=== PATIENT | female | born 1940 | race Caucasian/White ===

== ENCOUNTER 2016-11-18 12:26 | Inpatient (IN) | payer OTHER ==
[~2016-11-18] VITALS: Ht 154.9 cm; Wt 58.4 kg
[2016-11-18 14:33] LABS: HEMATOCRIT 29.5 % (36.0-46.0); MCHC 31.2 G/DL (30.0-36.0); MCV 89.9 FL (83-99); MEAN PLAT.VOLUME 8.9 uM^3 (9.5-12.4); PLATELET COUNT 435 K/uL (156-360); RBC DIS.WIDTH-CV 18.4 % (11.8-14.6); RED BLOOD COUNT 3.28 M/uL (3.80-5.20)
[2016-11-18 14:40] LABS: INTER. NORMALIZED RATIO 1.5; PROTHROMBIN TIME 17.1 SEC (10.2-12.9)
[2016-11-18 14:43] LABS: CHLORIDE 100 mEq/L (99-109); SODIUM 137 mEq/L (136-147)
[2016-11-18 14:45] LABS: GLUCOSE 96 mg/dL (70-99)
[2016-11-18 14:46] LABS: ANION GAP 10 MEQ/L (2-14); POTASSIUM 4.2 mEq/L (3.7-5.4)
[2016-11-18 14:49] LABS: GFR ESTIMATE (CALCULATED) > 59 mL/min/
[2016-11-18 14:50] LABS: UREA NITROGEN (BUN) 6 mg/dL (9-23)
[2016-11-18 14:55] LABS: TROP-I INTERPRETATION NEGATIVE; TROPONIN-I 0.01 ng/mL (0.0-0.30)
[2016-11-18] MEDS ORDERED: MILK OF MAGN PO (15:43)
[2016-11-18] MEDS ORDERED: BISAC-EVAC10 MG PR (15:44)
[2016-11-18] MEDS ORDERED: FLEET ENEMA-AD118 ML PR (15:45)
[2016-11-18] MEDS ORDERED: DIGOX250 MCG PO (15:46)
[2016-11-18] MEDS ORDERED: LEVOTHYROXINE75 MCG PO (15:47)
[2016-11-18] MEDS ORDERED: ROXICODONE5 MG PO (15:48)
[2016-11-18] MEDS ORDERED: PREDNISONE5 MG PO (15:49)
[2016-11-18] MEDS ORDERED: LAX STOOL SOFT1 EACH PO (15:50)
[2016-11-18] MEDS ORDERED: ACETAMINOPHEN325 M1 PO (15:51)
[2016-11-18] MEDS ORDERED: CARDIZEM CD240 MG PO ×2 (15:52)
[2016-11-18] MEDS ORDERED: SODIUM CHLORIDE1 G1 PO (15:53)
[2016-11-18] MEDS ORDERED: ELIQUIS5 MG PO (15:53)
[2016-11-18] MEDS ORDERED: ACETAMINOPHEN650 M4 PR (15:54)
[2016-11-18] MEDS ORDERED: REMERON15 M2 PO (15:54)
[2016-11-18] MEDS ORDERED: PHENERGAN25 MG PR (15:55)
[2016-11-18] MEDS ORDERED: AUGMENTIN875 MG PO (15:55)
[2016-11-18] MEDS ORDERED: DUONEB 2.5-0.5 M3 ML AEROSOL (15:56)
[2016-11-18] MEDS ORDERED: ACIDOPHILUS1 EAC3 PO (15:57)
[2016-11-18] MEDS ORDERED: COUGH SYRU100 MG/5 M PO (15:58)
[2016-11-18] MEDS ORDERED: FLUOXETINE HCL10 MG PO (15:59)
[2016-11-18] MEDS ORDERED: MACROBID100 MG PO (16:00)
[2016-11-18 23:26] VITALS: BP 119/67
[2016-11-19 07:04] LABS: ANION GAP 11 MEQ/L (2-14); CHLORIDE 102 MEQ/L (99-109); GFR ESTIMATE (CALCULATED) > 59 mL/min/; GLUCOSE 73 mg/dL (70-99); POTASSIUM 3.4 MEQ/L (3.7-5.4); SAMPLE HEMOLYSIS CHECK 0; SAMPLE ICTERIC CHECK 0; SAMPLE LIPEMIA CHECK 0; SODIUM 136 MEQ/L (136-147); UREA NITROGEN (BUN) 5 mg/dL (9-23)
[2016-11-19 07:10] LABS: TROP-I INTERPRETATION NEGATIVE; TROPONIN-I 0.02 ng/mL (0.0-0.30)
[2016-11-19 08:23] VITALS: BP 128/71
[2016-11-19 11:00] VITALS: BP 124/63
[2016-11-19 15:10] VITALS: BP 126/67
[2016-11-19 20:27] VITALS: BP 123/72
[2016-11-19 23:53] VITALS: BP 121/66
[2016-11-20 06:40] VITALS: BP 118/66
[2016-11-20 16:10] VITALS: BP 121/72
[2016-11-20 19:49] VITALS: BP 132/75
[2016-11-20 23:49] VITALS: BP 131/66
[2016-11-21 04:26] VITALS: BP 125/73
[2016-11-21 07:48] VITALS: BP 114/60
[2016-11-21 07:56] LABS: ANION GAP 9 MEQ/L (2-14); CHLORIDE 99 MEQ/L (99-109); GFR ESTIMATE (CALCULATED) > 59 mL/min/; GLUCOSE 82 mg/dL (70-99); POTASSIUM 3.4 MEQ/L (3.7-5.4); SAMPLE HEMOLYSIS CHECK 0; SAMPLE ICTERIC CHECK 0; SAMPLE LIPEMIA CHECK 0; SODIUM 135 MEQ/L (136-147); UREA NITROGEN (BUN) 7 mg/dL (9-23)
[2016-11-21 08:28] LABS: C DIFF TOXIN POSITIVE (NEGATIVE); PROBE CHECK PASS
[2016-11-21 08:44] LABS: FERRITIN 125 NG/ML (10-291)
[2016-11-21 11:02] VITALS: BP 123/61
[2016-11-21 16:35] VITALS: BP 126/69
[2016-11-21 19:28] VITALS: BP 123/68
[2016-11-22 00:05] VITALS: BP 129/68
[2016-11-22 03:37] VITALS: BP 132/79
[2016-11-22 06:11] LABS: EOSINOPHIL (%) 1.1 % (0-5); EOSINOPHIL COUNT 0.1 K/uL (0-0.3); HEMATOCRIT 31.6 % (36.0-46.0); IMMATURE GRANULOCYTE (%) 1.3 % (0.0-0.7); IMMATURE GRANULOCYTE COUNT 0.1 K/uL; INSTRUMENT ABS NEUTROPHIL CT 3.7 K/uL; MCH 27.5 PG (29.0-34.0); MCHC 30.4 G/DL (30.0-36.0); MCV 90.5 FL (83-99); MONOCYTE (%) 8.3 % (3-12); MONOCYTE COUNT 0.4 K/uL (0-0.8); NEUTROPHIL (%) 69.6 % (45-76); NEUTROPHIL COUNT 3.7 K/uL (1.8-6.4); PLATELET COUNT 437 K/uL (156-360); RBC DIS.WIDTH-CV 18.3 % (11.8-14.6); RBC DIS.WIDTH-SD 61.1 % (39-53); RED BLOOD COUNT 3.49 M/uL (3.80-5.20); WHITE BLOOD COUNT 5.3 K/uL (4.1-10.2)
[2016-11-22 06:34] LABS: ANION GAP 11 MEQ/L (2-14); CHLORIDE 98 MEQ/L (99-109); GFR ESTIMATE (CALCULATED) > 59 mL/min/; GLUCOSE 79 mg/dL (70-99); POTASSIUM 3.3 MEQ/L (3.7-5.4); SAMPLE HEMOLYSIS CHECK 0; SAMPLE ICTERIC CHECK 0; SAMPLE LIPEMIA CHECK 0; SODIUM 134 MEQ/L (136-147); UREA NITROGEN (BUN) 7 mg/dL (9-23)
[2016-11-22 07:54] VITALS: BP 148/84
[2016-11-22 11:53] VITALS: BP 118/65
[2016-11-22 16:00] VITALS: BP 128/74
[2016-11-22 23:56] VITALS: BP 120/68
[2016-11-23 07:37] VITALS: BP 129/73
[2016-11-23 16:02] VITALS: BP 121/63
[2016-11-23 22:36] VITALS: BP 125/68
[2016-11-24 08:29] VITALS: BP 134/78
[2016-11-24 16:12] VITALS: BP 107/68
[2016-11-24 21:42] LABS: ANION GAP 10 MEQ/L (2-14); CHLORIDE 97 MEQ/L (99-109); GFR ESTIMATE (CALCULATED) > 59 mL/min/; GLUCOSE 69 mg/dL (70-99); SAMPLE HEMOLYSIS CHECK 0; SAMPLE ICTERIC CHECK 0; SAMPLE LIPEMIA CHECK 0; SODIUM 134 MEQ/L (136-147); UREA NITROGEN (BUN) 7 mg/dL (9-23)
[2016-11-24 23:00] VITALS: BP 116/72
[2016-11-25 06:35] LABS: EOSINOPHIL (%) 0.7 % (0-5); EOSINOPHIL COUNT 0.1 K/uL (0-0.3); HEMATOCRIT 28.4 % (36.0-46.0); IMMATURE GRANULOCYTE COUNT 0.1 K/uL; LYMPHOCYTE COUNT 1.4 K/uL (1.0-2.8); MCH 28.9 PG (29.0-34.0); MCV 90.2 FL (83-99); MEAN PLAT.VOLUME 9.2 uM^3 (9.5-12.4); MONOCYTE (%) 5.6 % (3-12); MONOCYTE COUNT 0.5 K/uL (0-0.8); NEUTROPHIL (%) 77.4 % (45-76); PLATELET COUNT 418 K/uL (156-360); RBC DIS.WIDTH-CV 18.5 % (11.8-14.6); RBC DIS.WIDTH-SD 60.5 % (39-53); RED BLOOD COUNT 3.15 M/uL (3.80-5.20); WHITE BLOOD COUNT 9.1 K/uL (4.1-10.2)
[2016-11-25 07:07] LABS: DIGOXIN 0.7 ng/mL (0.8-2.0)
[2016-11-25 07:12] LABS: ALKALINE PHOSPHATASE 68 IU/L (3-129); ANION GAP 9 MEQ/L (2-14); CHLORIDE 100 MEQ/L (99-109); GFR ESTIMATE (CALCULATED) > 59 mL/min/; SAMPLE HEMOLYSIS CHECK 0; SAMPLE ICTERIC CHECK 0; SAMPLE LIPEMIA CHECK 0; SODIUM 135 MEQ/L (136-147); TOTAL BILIRUBIN 0.3 MG/DL (0.0-1.0); UREA NITROGEN (BUN) 7 mg/dL (9-23)
[2016-11-25 07:13] LABS: GLUCOSE 102 mg/dL (70-99); POTASSIUM 3.9 MEQ/L (3.7-5.4)
[2016-11-25 09:24] VITALS: BP 138/78
[2016-11-25 15:28] VITALS: BP 134/74
[2016-11-25 22:42] VITALS: BP 135/79
[2016-11-26 07:41] VITALS: BP 101/58
[2016-11-26 15:50] VITALS: BP 110/74
[2016-11-26] MEDS ORDERED: DUONEB 2.5-0.5 M3 ML AEROSOL (16:10)
[2016-11-26] MEDS ORDERED: PROZAC40 MG PO (16:12)
[2016-11-26] MEDS ORDERED: VANCOMYCIN HCL250 MG PO (16:13)
[2016-11-26] MEDS ORDERED: ARIPIPRAZOLE2 MG PO (16:14)
[2016-11-26] MEDS ORDERED: DRONABINOL2.5 MG PO (16:16)
== END 2016-11-26 18:04 | DRG 881 ==
LOC: EME → EDBD 12:26 → 5EAST 16:40 → EDOF 16:40 → ENRESERV 17:26 → 5EAST 19:07
PROVIDERS: Emergency Medicine; Internal Medicine; Internal Medicine Pulmonary Disease
DX: F32.9 Major depressive disorder, single episode, unspecified (principal); J69.0 Pneumonitis due to inhalation of food and vomit; A04.7 Enterocolitis due to Clostridium difficile; J90 Pleural effusion, not elsewhere classified; I48.2 Chronic atrial fibrillation; R45.851 Suicidal ideations; M06.9 Rheumatoid arthritis, unspecified; K56.60 Unspecified intestinal obstruction; D63.8 Anemia in other chronic diseases classified elsewhere; E03.9 Hypothyroidism, unspecified; Z51.5 Encounter for palliative care; G25.81 Restless legs syndrome; Z66 Do not resuscitate; I10 Essential (primary) hypertension; Z87.891 Personal history of nicotine dependence; Z85.3 Personal history of malignant neoplasm of breast
CPT/HCPCS: 71010; 71020; 71250; 80048; 80053; 80162; 82607; 82728; 82746; 83880; 84439; 84443; 84484; 85025; 85027; 85610; 87040; 87493; 92610 GN; 93005; 93306; 99202; 99281; 99285; J0456; J0696; J1940; J2405; J2543; J3370; J3480; J7030; J7042; J7050; J7512; Q0167

== ENCOUNTER 2016-11-28 10:37 | Inpatient (IN) | payer OTHER ==
[~2016-11-28] VITALS: Ht 154.9 cm; Wt 58.7 kg
[~2016-11-28 10:37] MED LIST: ACETAMINOPHEN325 M1 PO; ACETAMINOPHEN650 M4 PR; ACIDOPHILUS1 EAC3 PO; ARIPIPRAZOLE2 MG PO; AUGMENTIN875 MG PO; BISAC-EVAC10 MG PR; CARDIZEM CD240 MG PO; COUGH SYRU100 MG/5 M PO; DIGOX250 MCG PO; DRONABINOL2.5 MG PO; DUONEB 2.5-0.5 M3 ML AEROSOL; ELIQUIS5 MG PO; FLEET ENEMA-AD118 ML PR; FLUOXETINE HCL10 MG PO; LAX STOOL SOFT1 EACH PO; LEVOTHYROXINE75 MCG PO; MACROBID100 MG PO; MILK OF MAGN PO; PHENERGAN25 MG PR; PREDNISONE5 MG PO; PROZAC40 MG PO; REMERON15 M2 PO; ROXICODONE5 MG PO; SODIUM CHLORIDE1 G1 PO; VANCOMYCIN HCL250 MG PO
[2016-11-28 11:42] LABS: HEMATOCRIT 31.3 % (36.0-46.0); MCH 27.4 PG (29.0-34.0); MCV 88.4 FL (83-99); MEAN PLAT.VOLUME 9.2 uM^3 (9.5-12.4); PLATELET COUNT 381 K/uL (156-360); RBC DIS.WIDTH-CV 18.3 % (11.8-14.6); RBC DIS.WIDTH-SD 58.6 % (39-53); RED BLOOD COUNT 3.54 M/uL (3.80-5.20); WHITE BLOOD COUNT 8.6 K/uL (4.1-10.2)
[2016-11-28 11:50] LABS: CHLORIDE 102 mEq/L (99-109); SODIUM 136 mEq/L (136-147)
[2016-11-28 11:51] LABS: POTASSIUM 4.8 mEq/L (3.7-5.4)
[2016-11-28 11:52] LABS: GLUCOSE 97 mg/dL (70-99)
[2016-11-28 11:54] LABS: ANION GAP 12 MEQ/L (2-14); TOTAL BILIRUBIN 0.3 mg/dL (0.0-1.0)
[2016-11-28 11:56] LABS: ALKALINE PHOSPHATASE 84 IU/L (3-129); GFR ESTIMATE (CALCULATED) > 59 mL/min/
[2016-11-28 11:57] LABS: UREA NITROGEN (BUN) 8 mg/dL (9-23)
[2016-11-28 12:03] LABS: TROP-I INTERPRETATION NEGATIVE; TROPONIN-I < 0.01 ng/mL (0.0-0.30)
[2016-11-28 12:19] LABS: DIGOXIN 0.4 ng/mL (0.8-2.0)
[2016-11-28] MEDS ORDERED: VANCOCIN 250 M250 MG PO (15:38)
[2016-11-28] MEDS ORDERED: ABILIFY2 MG PO (15:42)
[2016-11-28 18:37] VITALS: BP 113/67
[2016-11-28 19:30] VITALS: BP 113/82
[2016-11-29] VITALS (7 sets, daily range): BP systolic 98–118; BP diastolic 58–78
[2016-11-30 03:20] VITALS: BP 110/66
[2016-11-30 08:21] VITALS: BP 119/60
[2016-11-30 12:16] VITALS: BP 117/54
[2016-11-30 16:05] VITALS: BP 102/71
[2016-11-30 19:20] VITALS: BP 112/67
[2016-12-01 05:58] LABS: ANION GAP 7 MEQ/L (2-14); CHLORIDE 109 MEQ/L (99-109); GFR ESTIMATE (CALCULATED) > 59 mL/min/; GLUCOSE 92 mg/dL (70-99); SAMPLE HEMOLYSIS CHECK 0; SAMPLE ICTERIC CHECK 0; SAMPLE LIPEMIA CHECK 0; SODIUM 138 MEQ/L (136-147); UREA NITROGEN (BUN) 5 mg/dL (9-23)
[2016-12-01 05:59] LABS: POTASSIUM 3.3 MEQ/L (3.7-5.4)
[2016-12-01 06:16] VITALS: BP 111/58
[2016-12-01 07:42] VITALS: BP 113/70
[2016-12-01 12:12] VITALS: BP 101/69
[2016-12-01 15:57] VITALS: BP 112/72
[2016-12-01 19:09] VITALS: BP 108/59
[2016-12-02] VITALS (7 sets, daily range): BP systolic 106–127; BP diastolic 60–74
[2016-12-03 03:58] VITALS: BP 106/76
[2016-12-03 05:12] LABS: EOSINOPHIL (%) 2.7 % (0-5); EOSINOPHIL COUNT 0.1 K/uL (0-0.3); HEMATOCRIT 27.2 % (36.0-46.0); IMMATURE GRANULOCYTE (%) 0.7 % (0.0-0.7); INSTRUMENT ABS NEUTROPHIL CT 1.9 K/uL; LYMPHOCYTE COUNT 1.5 K/uL (1.0-2.8); MCH 28.3 PG (29.0-34.0); MCHC 31.3 G/DL (30.0-36.0); MCV 90.7 FL (83-99); MEAN PLAT.VOLUME 9.2 uM^3 (9.5-12.4); MONOCYTE (%) 13.1 % (3-12); MONOCYTE COUNT 0.5 K/uL (0-0.8); NEUTROPHIL COUNT 1.9 K/uL (1.8-6.4); PLATELET COUNT 270 K/uL (156-360); RBC DIS.WIDTH-SD 62.7 % (39-53); WHITE BLOOD COUNT 4.1 K/uL (4.1-10.2)
[2016-12-03 05:37] LABS: ANION GAP 8 MEQ/L (2-14); CHLORIDE 108 MEQ/L (99-109); GFR ESTIMATE (CALCULATED) > 59 mL/min/; GLUCOSE 80 mg/dL (70-99); POTASSIUM 3.7 MEQ/L (3.7-5.4); SAMPLE HEMOLYSIS CHECK 0; SAMPLE ICTERIC CHECK 0; SAMPLE LIPEMIA CHECK 0; SODIUM 137 MEQ/L (136-147); UREA NITROGEN (BUN) 4 mg/dL (9-23)
[2016-12-03 08:21] VITALS: BP 118/60
[2016-12-03 12:48] VITALS: BP 125/63
[2016-12-03] MEDS ORDERED: VANCOCIN 250 M250 MG PO (14:57)
[2016-12-03 15:49] VITALS: BP 105/59
== END 2016-12-03 17:55 | DRG 309 ==
LOC: EME 10:37 → EDOF 15:32 → 4EAST 15:32 → ENRESERV 15:52 → 4EAST 18:16 → ENPENDDIS 12-03 → 4EAST 12-03 17:55
PROVIDERS: Emergency Medicine; Internal Medicine
DX: I48.2 Chronic atrial fibrillation (principal); M06.9 Rheumatoid arthritis, unspecified; Z87.891 Personal history of nicotine dependence; A04.7 Enterocolitis due to Clostridium difficile; D63.8 Anemia in other chronic diseases classified elsewhere; E03.9 Hypothyroidism, unspecified; I10 Essential (primary) hypertension; M35.00 Sjogren syndrome, unspecified; Z66 Do not resuscitate; Z91.81 History of falling; F33.9 Major depressive disorder, recurrent, unspecified; S40.012A Contusion of left shoulder, initial encounter; W05.0XXA Fall from non-moving wheelchair, initial encounter; Y92.129 Unspecified place in nursing home as the place of occurrence of the external cause
CPT/HCPCS: 70450; 71010; 73030; 73564; 74241; 80048; 80053; 80162; 84484; 85025; 85027; 92526 GN; 92610 GN; 93005; 99202; 99281; 99285; J1160; J1650; J3480; J7042; J7512; Q0167; S0030

== ENCOUNTER → 2017-01-27 | Outpatient (CLI) | payer OTHER ==
[~2017-01-27] MED LIST changes: +ABILIFY2 MG PO; +VANCOCIN 250 M250 MG PO
== END | disposition home or self-care (01) ==
LOC: RAD 08:41
DX: R13.10 Dysphagia, unspecified (principal)
CPT/HCPCS: 74230; 92611 GN